=== PATIENT | female | born 1960 | race Caucasian/White ===

== ENCOUNTER 2023-05-30 09:53 | Emergency (ER) | payer OTHER ==
--- NOTE | 2023-05-30 10:25 | ED Physician Documentation ---
PD HPI FOCAL NEURO - Stated complaint Stated Complaint: LT FACE DROOL - Chief complaint Chief Complaint: Neuro - History obtained from History obtained from: Patient, Friend - History of Present Illness Timing - onset: Last night (mild symptoms last night, increased this morning.) Timing - duration: Hours Timing - details: Gradual onset, Still present Severity of deficit: Mild Weakness: Face. No: Arm, Leg Numbness: No: Face, Arm, Leg Associated symptoms: No: Headache, Nausea / vomiting, Neck pain, Back pain Similar symptoms before: No diagnosis (has had facial weakness, with possible left weakness, twice before at the tail end of a URI type illness. Self limited over a week or two.) Review of Systems Constitutional: reports: Myalgias, Fatigue (had URI symptoms last week and was improving, mostly over it per pt.). denies: Fever, Chills Nose: reports: Rhinorrhea / runny nose, Congestion Throat: denies: Sore throat Cardiac: denies: Chest pain / pressure Respiratory: denies: Cough GI: reports: Nausea. denies: Abdominal Pain, Vomiting, Diarrhea, Bloody / black stool Neurologic: denies: Headache, Head injury PD PAST MEDICAL HISTORY - Past Medical History Past Medical History: No - Past Surgical History Past Surgical History: No - Present Medications Home Medications: Ambulatory Orders Medication Instructions Recorded Confirmed dexAMETHasone [Decadron] 4 mg PO DAILY #7 tablet 05/30/23 valACYclovir [Valtrex] 500 mg PO TID 7 Days #21 tablet 05/30/23 - Allergies Allergies/Adverse Reactions: Allergies Allergy/AdvReac Type Severity Reaction Status Date / Time No Known Drug Allergies Allergy Verified 05/30/23 10:20 - Social History Does the pt smoke?: No Smoking Status: Never smoker Does the pt have substance abuse?: No - Immunizations Immunizations are current?: Yes PD ED PE NORMAL - Vitals Vital signs reviewed: Yes - General General: Alert and oriented X 3, No acute distress, Well developed/nourished - Neck Neck: Supple, no meningeal sign, No adenopathy - Cardiac Cardiac: RRR, No murmur - Respiratory Respiratory: Clear bilaterally - Derm Derm: Normal color, Warm and dry - Neuro Neuro: Alert and oriented X 3, No sensory deficit, Normal speech. No: meters superintendent 2-12 intact (there is left facial weakness with face resting. She is able to close eyes tightly without noticable assymetry. Not able to puff cheeks and hold air left side. rested face, there is a clear assymetry of forehead wrinkle lines, with smoother appearance to left. ) Results - Vitals Vitals: Vital Signs - 24 hr 05/30/23 05/30/23 05/30/23 10:09 10:46 11:46 Temperature 37.0 C Heart Rate 82 89 79 Respiratory 16 13 26 H Rate Blood Pressure 136/94 H 117/86 H 117/86 H O2 Saturation 100 99 98 05/30/23 12:14 Temperature 36.8 C Heart Rate 71 Respiratory 18 Rate Blood Pressure 138/85 H O2 Saturation 99 Oxygen O2 Source Room air - Labs Labs: Laboratory Tests 05/30/23 05/30/23 10:46 10:46 WBC 2.8 L RBC 4.23 Hgb 12.2 Hct 37.9 MCV 89.6 MCH 28.8 MCHC 32.2 RDW 13.6 Plt Count 167 MPV 9.5 Neut # (Auto) Not Reportable Lymph # (Auto) Not Reportable [place] # (Auto) Not Reportable Eos # (Auto) Not Reportable Baso # (Auto) Not Reportable Absolute Nucleated RBC Not Reportable Total Counted 100 Band Neuts % (Manual) 4 Abnorm Lymph % (Manual) 0 Metamyelocytes % 1 H Nucleated RBC % Not Reportable Neutrophils # (Manual) 1.8 Lymphocytes # (Manual) 0.6 L Monocytes # (Manual) 0.3 Eosinophils # (Manual) 0.0 Basophils # (Manual) 0.0 Differential Comment MANUAL DIFFERENTIAL Platelet Estimate NORMAL (130-450,000) Platelet Morphology NORMAL APPEARANCE RBC Morph Micro Appear NORMAL APPEARANCE Sodium 136 Potassium 3.4 L Chloride 105 Carbon Dioxide 23 Anion Gap 8.0 BUN 20 Creatinine 0.7 Estimated GFR (MDRD) 85 L Glucose 88 Calcium 8.3 L Phosphorus 4.1 Magnesium 1.5 L Total Bilirubin 0.5 AST 18 ALT 11 Alkaline Phosphatase 51 Total Protein 5.8 L Albumin 3.7 Globulin 2.1 Albumin/Globulin Ratio 1.8 Lipase 61 TSH 3.40 PD Medical Decision Making - ED course Complexity details: reviewed results (normal renal function, and resp panel, glucose. WBC is low at 2.8 most likely c/w viral illness. Low potassium and Mag slightly below level. .), considered differential (gradual onset last night into today of left facial weakness. Denies other weakness. No headache. ), d/w patient ED course: gradual left facial weakening since last evening, without headache nor injury. Increased facial weakness today. 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 FDid get blood tests to al for lytes, CBC, glucose, given her recent illness, as could contribure to general weakness. These showed slightly low K and Mag, but not enough to account for symptoms. Departure - Departure Disposition: 01 Home, Self Care Clinical Impression: Weakness on left side of face, Recent URI, Hypomagnesemia, Hypokalemia Condition: Stable Record reviewed to determine appropriate education?: Yes Instructions: ED [place] Palsy Prescriptions: dexAMETHasone [Decadron] 4 mg PO DAILY #7 tablet valACYclovir [Valtrex] 500 mg PO TID 7 Days #21 tablet Comments: Your presentation an area of weakness, in particular the asymmetry on the forehead, points to this being a Ramos palsy. This can be an immune inflammatory process and could have been triggered by a recent viral URI. Your blood test did show mildly low magnesium and borderline low potassium. I would suggest supplements of these over the next several days to week and staying well-hydrated of course. They are not low enough to really account for the symptoms that you are having. The timing of onset of symptoms to maximal degree of weakness for Ramos palsy is typically about 3 to 5 days and then it can last several weeks before resolving. Follow-up with your primary care if not plateauing over the next several days and improving slowly from there. Commonly will treat with a combination of a steroid anti-inflammatory to decrease some of the neuritis or inflammation of the nerve that is causing the symptoms. Recommendations often include use of a antiviral medicine as sometimes this is related to a viral activation such as shingles without rash. I wrote prescriptions for these. Discuss it with your spouse as you intend and can fill them 1 or or both. I would suggest at least the Decadron steroid as the most likely helpful. Forms: PCP List Discharge Date/Time: 05/30/23 12:15
[2023-05-30] MEDS: SODIUM CHLORIDE 0.9% 1,000 ML IV STA (10:27)
[2023-05-30 10:52] LABS: BASOPHILS % (AUTO) 0.4 %; EOSINOPHILS % (AUTO) 1.8 %; HCT - HEMATOCRIT 37.9 % (37.0-47.0); HGB - HEMOGLOBIN 12.2 g/dL (12.0-16.0); LYMPHOCYTES % (AUTO) 16.6 %; MEAN CORPUSCULAR HEMOGLOBIN 28.8 pg (27.0-31.0); MEAN CORPUSCULAR HGB CONC 32.2 g/dL (32.0-36.0); MEAN CORPUSCULAR VOLUME 89.6 fL (81.0-99.0); MEAN PLATELET VOLUME 9.5 fL (7.9-10.8); MONOCYTES % (AUTO) 14.8 %; NEUTROPHILS % (AUTO) 65.7 %; PLT - PLATELET COUNT 167 10^3/uL (130-450); RED BLOOD COUNT 4.23 10^6/uL (4.20-5.40); RED CELL DISTRIBUTION WIDTH 13.6 % (12.0-15.0); WHITE BLOOD COUNT 2.8 x10^3/uL (4.8-10.8)
[2023-05-30 10:57] LABS: ABNORMAL LYMPHS % (MANUAL) 0 %
[2023-05-30 11:00] LABS: MAGNESIUM 1.5 mg/dL (1.7-2.3)
[2023-05-30 11:06] LABS: ALBUMIN 3.7 g/dL (3.2-5.5); ALBUMIN/GLOBULIN RATIO 1.8 (1.0-2.2); BILIRUBIN,TOTAL 0.5 mg/dL (0.2-1.0); CALCIUM 8.3 mg/dL (8.5-10.3); CREATININE 0.7 mg/dL (0.6-1.3); PHOSPHORUS 4.1 mg/dL (2.5-5.0); POTASSIUM 3.4 mmol/L (3.5-4.5); TOTAL PROTEIN 5.8 g/dL (6.4-8.9)
[2023-05-30 11:18] LABS: BAND NEUTROPHILS % (MANUAL) 4 %; DIFFERENTIAL COMMENT MANUAL DIFFERENTIAL; LYMPHOCYTES # (MANUAL) 0.6 10^3/uL (1.5-3.5); LYMPHOCYTES % (MANUAL) 23 %; METAMYELOCYTES % (MANUAL) 1 %; MONOCYTES # (MANUAL) 0.3 10^3/uL (0.0-1.0); NEUTROPHILS # (MANUAL) 1.8 10^3/uL (1.5-6.6); PLATELET ESTIMATE, MANUAL NORMAL (130-450,000) (NORMAL); PLATELET MORPHOLOGY NORMAL APPEARANCE (NORMAL); RBC MORPHOLOGY (MULTIPLE) NORMAL APPEARANCE (NORMAL)
[2023-05-30 11:21] LABS: THYROID STIMULATING HORMONE 3.4 uIU/mL (0.34-5.60)
[2023-05-30] MEDS: POTASSIUM BICARB 25 MEQ TABLET PO STA (11:51)
[2023-05-30] MEDS: MAGNESIUM OXIDE 400 MG TABLET PO STA (11:51)
[2023-05-30 12:15] VITALS: BP 138/85; O2SAT 99
== END 2023-05-30 12:15 | disposition home or self-care (01) ==
LOC: ED 09:53
DX: G51.0 Bell's palsy (principal); E83.42 Hypomagnesemia; E87.6 Hypokalemia
CPT/HCPCS: 36415; 80053; 83690; 83735; 84100; 84443; 85025; 99283; 99284; A9270